=== PATIENT | female | born 1985 | race American Indian/Alaskan Native ===

== ENCOUNTER 2017-04-26 13:26 | Emergency (ER) | payer MEDICAID ==
[2017-04-26] MEDS ORDERED: BOOSTRIX IM ONE ×3 (14:46→19:30)
[2017-04-26] MEDS ORDERED: NACL 0.9% IR ONE (14:46)
[2017-04-26] MEDS ORDERED: XYLOCAINE 1% 20 mL INFILTRATI ONE (14:46)
--- NOTE | 2017-04-26 14:46 | Emergency Department Report ---
Stated Complaint: ABSCESS UNDER ARM Time Seen by Provider: 04/26/17 14:44 - HPI History of Present Illness: PT c/o abscess to L axilla x 4 days - ROS Review of Systems: + nausea + fever - Exam Physical Exam: L axilla abscess MSE screening note: Focused history and physical exam performed. Due to findings the following was ordered: meds ED Disposition for MSE Condition: Stable
[2017-04-26] MEDS ORDERED: NACL 0.9% 500 ML IR ONE (19:20)
[2017-04-26] MEDS ORDERED: XYLOCAINE 1% 20 mL ONE (19:23)
[2017-04-26] MEDS ORDERED: NORCO 7.5/325 PO ONE ×2 (20:13→22:02)
[2017-04-26] MEDS ORDERED: MOTRIN PO ONE (20:13)
[2017-04-26] MEDS ORDERED: FLEXERIL PO ONE (20:13)
--- NOTE | 2017-04-26 21:41 | Emergency Department Report ---
Abscess Boil HPI - HPI Chief Complaint: Skin/Abscess/Foreign Body Stated Complaint: ABSCESS UNDER ARM Time Seen by Provider: 04/26/17 14:44 Duration: 3 Days Location: Upper Extremity Severity: Mild History: Yes Pain, Yes Purulent Drainage, No Fever, No Numbness, No Foreign Body , No Previous History, No Insect Bite HPI: 31 year old female presents to ED with left axillary abscess approx 7-8cm in size. patient denies being diabetic. patient is stable ,neurologically intact and in no acute distress. patient states her LMP was Apr 08 2017 and there is no chance of preg because she is not sexually active. Home Medications: Previous Rx's Medication Instructions Recorded Last Taken Type Cephalexin [Keflex] 500 mg PO Q12HR #14 cap 04/26/17 Unknown Rx Meloxicam [Mobic] 7.5 mg PO QDAY #5 tablet 04/26/17 Unknown Rx Allergies/Adverse Reactions: Allergies Allergy/AdvReac Type Severity Reaction Status Date / Time No Known Allergies Allergy Verified 04/26/17 14:46 ED Review of Systems ROS: Stated complaint: ABSCESS UNDER ARM Other details as noted in HPI Constitutional: denies: chills, fever Eyes: denies: eye pain, eye discharge, vision change ENT: denies: ear pain, throat pain Respiratory: denies: cough, shortness of breath, wheezing Cardiovascular: denies: chest pain, palpitations Endocrine: no symptoms reported Gastrointestinal: denies: abdominal pain, nausea, diarrhea Genitourinary: denies: urgency, dysuria, discharge Musculoskeletal: denies: back pain, joint swelling, arthralgia Skin: other (left axillary abscess). denies: rash, lesions Neurological: denies: headache, weakness, paresthesias Psychiatric: denies: anxiety, depression Hematological/Lymphatic: denies: easy bleeding, easy bruising ED Past Medical Hx - Past Medical History Previous Medical History?: No - Surgical History Past Surgical History?: No - Social History Smoking Status: Never Smoker Substance Use Type: None - Medications Home Medications: Home Medications Medication Instructions Recorded Confirmed Last Taken Type Cephalexin [Keflex] 500 mg PO Q12HR #14 cap 04/26/17 Unknown Rx Meloxicam [Mobic] 7.5 mg PO QDAY #5 tablet 04/26/17 Unknown Rx ED Abscess Boil Physical Exam - Exam General: Vital signs noted. No distress. Alert and acting appropriately. Size: >5 cm Exam: Yes Tenderness, Yes Fluctuance, Yes Normal Neurologic Exam, Yes Normal Circulation, No Surrounding Cellulites/Erythema, No Lymphangitis, No Heart Murmur I & D Note - I & D Note I & D Note: left axillary area prepped with betadine. area numbed with 1% lidocaine and incised with 15blade scalpel. obtained moderated amount of purulent drainage. patient requested that procedure be stopped due to not tolerating pain well. bleeding well controlled. packing applied to wound and dressing applied. ED Course Vital Signs 04/26/17 04/26/17 04/26/17 14:43 20:27 20:28 Temperature 98.9 F Pulse Rate 84 Respiratory 16 18 18 Rate Blood Pressure 153/94 O2 Sat by Pulse 100 Oximetry Critical care attestation.: If time is entered above; I have spent that time in minutes in the direct care of this critically ill patient, excluding procedure time. ED Medical Decision Making - Medical Decision Making 31 year old female presents to ED with left axillary abscess. patient has had I& D performed and procedure was stopped during drainage portion due to patient not tolerating pain well and at patient's request. patient will be placed on PO antibiotics and agrees and understands to return to ED within 2-3 days for re check. patient is stable ,neurologically intact and in no acute distress. patient is afebrile. ED Disposition Clinical Impression: Abscess of axilla, left Disposition: DC-01 TO HOME OR SELFCARE Is pt being admited?: No Does the pt Need Aspirin: No Condition: Stable Instructions: Incision and Drainage (ED) Additional Instructions: Please return to ED within 2-3 days for recheck. Prescriptions: Cephalexin [Keflex] 500 mg PO Q12HR #14 cap Meloxicam [Mobic] 7.5 mg PO QDAY #5 tablet Referrals: PRIMARY CARE, [Primary Care Provider] - 2-3 Days
[2017-04-26 23:02] VITALS: BP 130/70
== END 2017-04-26 23:03 | disposition home or self-care (01) ==
LOC: ED 13:26
DX: L02.412 Cutaneous abscess of left axilla (principal)
CPT/HCPCS: 90471; 90715